=== PATIENT | male | born 1955 | race Caucasian/White ===

== ENCOUNTER 2024-08-06 15:41 | Outpatient (CLI) | payer MEDICARE, OTHER | END 2024-08-06 15:42 | disposition home or self-care (01) | LOC: CSHULT 15:41 | PROVIDERS: ATTEND Urology | DX: N20.0 Calculus of kidney (principal); Z12.5 Encounter for screening for malignant neoplasm of prostate; N28.1 Cyst of kidney, acquired | CPT/HCPCS: 76770 ==